=== PATIENT | female | born 1990 | race Two or more races ===

== ENCOUNTER 2018-02-07 12:37 | Emergency (ER) | payer OTHER ==
[~2018-02-07] VITALS: Ht 160 cm; Wt 78.9 kg
== END 2018-02-07 15:44 | disposition home or self-care (01) ==
LOC: ER 12:37
DX: O98.512 Other viral diseases complicating pregnancy, second trimester (principal); B34.9 Viral infection, unspecified; Z34.82 Encounter for supervision of other normal pregnancy, second trimester

== ENCOUNTER 2018-03-01 16:14 | Outpatient (CLI) | payer OTHER | END 2018-03-03 11:25 | disposition home or self-care (01) | LOC: OBS/DEL 16:14 | DX: O60.02 Preterm labor without delivery, second trimester (principal); Z34.82 Encounter for supervision of other normal pregnancy, second trimester ==

== ENCOUNTER 2018-03-20 19:26 | Outpatient (CLI) | payer OTHER ==
[2018-03-20] MEDS ORDERED: PRENATAL TABLE1 EACH PO (20:20)
== END 2018-03-21 15:24 | disposition home or self-care (01) ==
LOC: OBS/DEL 19:26
DX: O26.893 Other specified pregnancy related conditions, third trimester (principal); Z04.1 Encounter for examination and observation following transport accident; Z34.03 Encounter for supervision of normal first pregnancy, third trimester; V49.88XA Car occupant (driver) (passenger) injured in other specified transport accidents, initial encounter; Y93.89 Activity, other specified; Y92.488 Other paved roadways as the place of occurrence of the external cause; Y99.8 Other external cause status

== ENCOUNTER 2018-05-25 08:05 | Inpatient (IN) | payer OTHER ==
[~2018-05-25] VITALS: Ht 160 cm; Wt 2.7 kg
[~2018-05-25 08:05] MED LIST: PRENATAL TABLE1 EACH PO
== END 2018-05-29 15:43 | disposition home or self-care (01) | DRG 788 ==
LOC: LDR 05-26 20:52 → O/R 05-26 22:11 → OB/GYN 05-26 23:27
PROVIDERS: ADMIT Obstetrics & Gynecology
PROC: 4A1HXCZ Monitoring of Products of Conception, Cardiac Rate, External Approach (ICD-10-PCS; 2018-05-26)
PROC: 10D00Z1 Extraction of Products of Conception, Low, Open Approach (ICD-10-PCS; principal; 2018-05-26 21:15)
DX: O82 Encounter for cesarean delivery without indication (principal); O34.211 Maternal care for low transverse scar from previous cesarean delivery; O75.82 Onset (spontaneous) of labor after 37 completed weeks of gestation but before 39 completed weeks gestation, with delivery by (planned) cesarean section; Z3A.38 38 weeks gestation of pregnancy; Z37.0 Single live birth

== ENCOUNTER 2020-06-26 13:15 | Emergency (ER) | payer OTHER ==
[~2020-06-26] VITALS: Ht 160 cm; Wt 66.7 kg
== END 2020-06-26 18:34 | disposition home or self-care (01) ==
LOC: ER 13:15
DX: R10.11 Right upper quadrant pain (principal); R10.2 Pelvic and perineal pain

== ENCOUNTER 2020-07-23 22:56 | Emergency (ER) | payer OTHER ==
[~2020-07-23] VITALS: Ht 160 cm; Wt 65.3 kg
== END 2020-07-24 14:39 | disposition home or self-care (01) ==
LOC: ER 22:56
DX: O20.0 Threatened abortion (principal)

== ENCOUNTER 2024-03-27 17:45 | Emergency (ER) | payer OTHER ==
[~2024-03-27] VITALS: Ht 160 cm; Wt 79.4 kg
[2024-03-27] MEDS ORDERED: PRENATA CHEWAB1 EACH PO (18:05)
[2024-03-27] MEDS ORDERED: FOLIC ACID0.8 M1 PO (18:06)
== END 2024-03-27 20:24 | disposition home or self-care (01) ==
LOC: ER 17:48
DX: M25.561 Pain in right knee (principal)

== ENCOUNTER 2024-06-26 08:48 | Emergency (ER) | payer OTHER ==
[~2024-06-26] VITALS: Ht 160 cm; Wt 88.5 kg
[~2024-06-26 08:48] MED LIST changes: +FOLIC ACID0.8 M1 PO; +PRENATA CHEWAB1 EACH PO
[2024-06-26] MEDS ORDERED: 0.9 % SODIUM CHLORIDE 1,000 ML IV ONE (09:15)
[2024-06-26 09:50] LABS: HEMATOCRIT 30.9 % (36.0-45.00); MEAN CELL VOLUME 81.9 fL (80.00-100.00); MEAN CORPUSCULAR HEMOGLOBIN 26.6 pg (27.00-32.0); MEAN CORPUSCULAR HGB CONC 32.5 g/dl (32.0-36.0); PLATELET COUNT 235 K/uL (150-450); RED BLOOD COUNT 3.78 M/uL (4.00-6.00)
[2024-06-26 10:01] LABS: RED CELL DISTRIBUTION WIDTH 17.6 % (11.5-14.5)
[2024-06-26 10:25] LABS: ALBUMIN 2.5 gm/dL (3.4-5.0); ALKALINE PHOSPHATASE 77 U/L (50-136); ALT/SGPT 32 U/L (12-78); ANION GAP 10 (10.0-20.0); AST/SGOT 17 U/L (15-37); BLOOD UREA NITROGEN 6 mg/dL (7-18); BUN CREA RATIO 13 (7.0-25.0); CARBON DIOXIDE 26 mEq/L (21-32); CHLORIDE 109 mmol/L (98-107); CREATININE SERUM 0.46 mg/dL (0.55-1.02); GLOBULINA 4.3 G/DL (2.4-3.5); GLUCOSE FASTING 78 mg/dL (65-100); OSMOLALITY SERUM 278 MOSM/KG (275-295); POTASSIUM 3.79 mEq/L (3.5-5.1); SODIUM 141 mmol/L (136-145); TOTAL PROTEIN 6.8 gm/dL (6.4-8.2)
[2024-06-26 10:30] LABS: BILIRUBIN TOTAL < 0.10 mg/dL (0.3-1.2); HCG QUANTITATIVE 4518 mUI/mL (1-3)
== END 2024-06-26 12:13 | disposition home or self-care (01) ==
LOC: ER 08:48
PROVIDERS: General Practice
DX: Z34.90 Encounter for supervision of normal pregnancy, unspecified, unspecified trimester (principal); Z3A.26 26 weeks gestation of pregnancy; D64.9 Anemia, unspecified; R53.1 Weakness; R42 Dizziness and giddiness

== ENCOUNTER 2024-08-05 00:22 | Outpatient (CLI) | payer OTHER ==
[~2024-08-05] VITALS: Ht 160 cm; Wt 91.2 kg
[2024-08-05] VITALS: BP 93/62
[2024-08-05] MEDS ORDERED: ONDANSETRON HCL 2 MG/ML VIAL IV PRN (00:30)
[2024-08-05] MEDS ORDERED: RINGERS SOLUTION,LACTATED 1,000 ML IV SCH (00:30)
[2024-08-05 01:02] LABS: BASO % 0.2 % (0.1-1.2); EOS # 0.04 (0.04-0.54); EOS % 0.4 % (0.7-7.0); HEMATOCRIT 29.5 % (34.1-44.9); HEMOGLOBIN 9.5 g/dL (11.2-15.7); LYMPH # 0.91 (1.18-3.74); LYMPH % 8.4 % (19.3-53.1); MEAN CORPUSCULAR HEMOGLOBIN 25.8 pg (25.6-32.2); MONO # 0.75 (0.24-0.82); NEUT # 8.95 (1.56-6.13); NEUT % 83.1 % (34.0-71.1); PLATELET COUNT 256 K/uL (163-369); RED BLOOD COUNT 3.68 M/uL (3.93-5.22); RED CELL DISTRIBUTION WIDTH 17.7 % (11.6-14.4)
[2024-08-05 01:53] LABS: ALBUMIN 2.5 gm/dL (3.4-5.0); BILIRUBIN TOTAL 0.16 mg/dL (0.3-1.2); CALCIUM 8.7 mg/dL (8.5-10.1); CREATININE SERUM 0.61 mg/dL (0.55-1.02); GFR 112.27; GLOBULINA 3.8 G/DL (2.4-3.5); POTASSIUM 3.69 mEq/L (3.5-5.1); TOTAL PROTEIN 6.3 gm/dL (6.4-8.2)
[2024-08-05 03:10] VITALS: BP 100/65
[2024-08-05 06:22] VITALS: BP 94/59; O2SAT 98
[2024-08-05 09:08] VITALS: BP 100/72
== END 2024-08-05 09:14 | disposition home or self-care (01) ==
LOC: OBS/DEL 00:22
PROVIDERS: ATTEND Obstetrics & Gynecology
DX: O26.893 Other specified pregnancy related conditions, third trimester (principal); Z3A.32 32 weeks gestation of pregnancy

== ENCOUNTER 2024-08-21 08:28 | Outpatient (CLI) | payer OTHER | END 2024-08-21 09:23 | disposition home or self-care (01) | LOC: NST 08:28 | PROVIDERS: ATTEND Obstetrics & Gynecology Maternal & Fetal Medicine | DX: Z34.83 Encounter for supervision of other normal pregnancy, third trimester (principal) ==

== ENCOUNTER 2024-09-12 09:33 | Inpatient (IN) | payer OTHER ==
[~2024-09-12] VITALS: Ht 160 cm; Wt 3.2 kg
[2024-09-12 09:31] LABS: BASO % 0.4 % (0.1-1.2); EOS # 0.06 (0.04-0.54); EOS % 0.8 % (0.7-7.0); LYMPH # 1.20 (1.18-3.74); LYMPH % 15.8 % (19.3-53.1); MEAN PLATELET VOLUME 10.40 fl (9.4-12.4); MONO # 0.64 (0.24-0.82); MONO % 8.4 % (4.7-12.5); NEUT # 5.59 (1.56-6.13); NEUT % 73.7 % (34.0-71.1)
[2024-09-12 09:33] LABS: RED CELL DISTRIBUTION WIDTH 21.3 % (11.6-14.4)
[2024-09-12 10:10] LABS: INR < 0.93
[2024-09-12 10:19] LABS: COVID-19 AG NEGATIVE (NEGATIVE)
[2024-09-12 10:25] LABS: ALT/SGPT 22.0 U/L (12-78); AST/SGOT 17.0 U/L (15-37); BILIRUBIN TOTAL 0.32 mg/dL (0.3-1.2); BUN CREA RATIO 13.0 (7.0-25.0); CREATININE SERUM 0.48 mg/dL (0.55-1.02); GFR 148.04; GLOBULINA 3.8 G/DL (2.4-3.5); GLUCOSE FASTING 76.0 mg/dL (65-100); OSMOLALITY SERUM 278.0 MOSM/KG (275-295)
[2024-09-18 06:43] VITALS: BP 100/69
[2024-09-18] MEDS ORDERED: CEFAZOLIN SODIUM 1,000 MG VIAL ONE (07:22)
[2024-09-18] MEDS ORDERED: ERYTHROMYCIN BASE OPHT 1GM EACH TUBE OP ONE (08:46)
[2024-09-18] MEDS ORDERED: OXYTOCIN 10 UNITS/ML VIAL ONE ×2 (08:46→12:40)
[2024-09-18] MEDS ORDERED: CITRIC ACID/SODIUM CITRATE 30 ML BLIST.PACK PO SCH (10:00)
[2024-09-18] MEDS ORDERED: CEFAZOLIN SODIUM 1,000 MG VIAL IV SCH (10:00)
[2024-09-18] MEDS ORDERED: MORPHINE SULFATE 4 MG/ML VIAL IV ONE ×2 (11:15→12:15)
[2024-09-18] MEDS ORDERED: ONDANSETRON HCL 2 MG/ML VIAL ONE (12:12)
[2024-09-18] MEDS ORDERED: ONDANSETRON HCL 2 MG/ML VIAL IV ONE (12:20)
[2024-09-18] MEDS ORDERED: KETOROLAC TROMETHAMINE 30 MG VIAL IV SCH (12:33)
[2024-09-18] MEDS ORDERED: KETOROLAC TROMETHAMINE 30 MG VIAL ONE (12:40)
[2024-09-18] MEDS ORDERED: OXYTOCIN 1,000 ML IV ONE (12:45)
[2024-09-18] MEDS ORDERED: MORPHINE SULFATE 4 MG/ML CARTRIDGE IV SCH (13:00)
[2024-09-18 13:27] VITALS: BP 107/65
[2024-09-18] MEDS ORDERED: OXYTOCIN 10 UNITS/ML VIAL IV ONE (14:30)
[2024-09-18 15:51] VITALS: BP 106/67
[2024-09-18 20:00] VITALS: BP 103/69
[2024-09-19 01:54] VITALS: BP 119/77
[2024-09-19] MEDS ORDERED: ACETAMINOPHEN 500 MG GEL..CAP PO SCH (06:00)
[2024-09-19 06:15] LABS: BASO % 0.3 % (0.1-1.2); EOS # 0.03 (0.04-0.54); EOS % 0.3 % (0.7-7.0); LYMPH # 0.62 (1.18-3.74); LYMPH % 5.8 % (19.3-53.1); MEAN PLATELET VOLUME 10.90 fl (9.4-12.4); MONO # 0.82 (0.24-0.82); MONO % 7.7 % (4.7-12.5); NEUT # 9.12 (1.56-6.13); NEUT % 85.5 % (34.0-71.1); RED CELL DISTRIBUTION WIDTH 22.4 % (11.6-14.4)
[2024-09-19 08:39] VITALS: BP 106/70
[2024-09-19] MEDS ORDERED: GABAPENTIN 300 MG CAPSULE PO SCH (09:00)
[2024-09-19] MEDS ORDERED: SIMETHICONE 125 MG CAPSULE PO SCH (09:00)
[2024-09-19] MEDS ORDERED: DOCUSATE SODIUM 100MG CAP PO SCH (09:00)
[2024-09-19] MEDS ORDERED: PNV,CALCIUM 72/IRON/FOLIC ACID 1 TAB TABLET PO SCH (09:00)
[2024-09-19 13:30] VITALS: BP 108/68
[2024-09-19 16:00] VITALS: BP 112/74
[2024-09-20] VITALS: BP 107/74
[2024-09-20 08:57] VITALS: BP 103/67; O2SAT 97
== END 2024-09-20 15:03 | disposition home or self-care (01) | DRG 785 ==
LOC: LDR 09-18 07:47 → O/R 09-18 09:53 → LDR 09-18 10:45 → OB/GYN 09-18 13:25 → LDR 09-18 16:37 → OB/GYN 09-20 15:03
PROVIDERS: Obstetrics & Gynecology Gynecology; ADMIT Obstetrics & Gynecology Maternal & Fetal Medicine; ATTEND Obstetrics & Gynecology Maternal & Fetal Medicine
PROC: 0UB70ZZ Excision of Bilateral Fallopian Tubes, Open Approach (ICD-10-PCS; 2024-09-18)
PROC: 4A1HXCZ Monitoring of Products of Conception, Cardiac Rate, External Approach (ICD-10-PCS; 2024-09-18)
PROC: 10D00Z1 Extraction of Products of Conception, Low, Open Approach (ICD-10-PCS; principal; 2024-09-18 10:45)
DX: O34.211 Maternal care for low transverse scar from previous cesarean delivery (principal); Z30.2 Encounter for sterilization; Z3A.38 38 weeks gestation of pregnancy; Z37.0 Single live birth

== ENCOUNTER 2024-09-27 16:01 | Inpatient (IN) | payer OTHER ==
[2024-09-27 16:20] LABS: BASO % 0.6 % (0.1-1.2); EOS # 0.13 (0.04-0.54); EOS % 1.8 % (0.7-7.0); LYMPH # 1.37 (1.18-3.74); LYMPH % 19.3 % (19.3-53.1); MEAN PLATELET VOLUME 9.70 fl (9.4-12.4); MONO # 0.59 (0.24-0.82); MONO % 8.3 % (4.7-12.5); NEUT # 4.91 (1.56-6.13); NEUT % 69.0 % (34.0-71.1); RED CELL DISTRIBUTION WIDTH 21.4 % (11.6-14.4)
[2024-09-27 16:40] VITALS: BP 112/68; O2SAT 97
[2024-09-27 16:42] LABS: INR 0.98
[2024-09-27 16:59] LABS: ALT/SGPT 26.0 U/L (12-78); AST/SGOT 17.0 U/L (15-37); BILIRUBIN TOTAL 0.23 mg/dL (0.3-1.2); BUN CREA RATIO 17.0 (7.0-25.0); CREATININE SERUM 0.71 mg/dL (0.55-1.02); GFR 94.23; GLOBULINA 4.1 G/DL (2.4-3.5); GLUCOSE FASTING 96.0 mg/dL (65-100); OSMOLALITY SERUM 285.0 MOSM/KG (275-295)
[2024-09-27] MEDS ORDERED: RINGERS SOLUTION,LACTATED 1,000 ML IV SCH (18:00)
[2024-09-27] MEDS ORDERED: ENOXAPARIN SODIUM 80 MG/0.8 ML SYRINGE SUBCUTANEO SCH (21:00)
[2024-09-28 00:21] VITALS: BP 103/64
[2024-09-28 08:00] VITALS: BP 92/66
[2024-09-28] MEDS ORDERED: PNV,CALCIUM 72/IRON/FOLIC ACID 1 TAB TABLET PO SCH (09:00)
[2024-09-28] MEDS ORDERED: IRON FUM,PS/FOLIC ACID/VITC/B3 1 CAP CAPSULE PO NR (11:00)
[2024-09-28 16:25] VITALS: BP 112/75
[2024-09-29] VITALS: BP 97/664
[2024-09-29 08:11] VITALS: BP 101/65
[2024-09-29] MEDS ORDERED: IRON FUM,PS/FOLIC ACID/VITC/B3 1 CAP CAPSULE PO SCH (09:00)
== END 2024-09-29 13:00 | disposition home or self-care (01) | DRG 301 ==
LOC: OB/GYN 16:01
PROVIDERS: ADMIT Obstetrics & Gynecology; ATTEND Obstetrics & Gynecology
DX: I80.9 Phlebitis and thrombophlebitis of unspecified site (principal)